=== PATIENT | male | born 1995 | race Caucasian/White ===

== ENCOUNTER 2021-05-24 16:12 | Inpatient (IN) | payer OTHER ==
[~2021-05-24] VITALS: Ht 182.8 cm; Wt 107.7 kg
[2021-05-24 17:06] LABS: BASO # 0.1 10*3/uL (0.0-0.1); BASO % 1.3 % (0.0-1.0); EOS % 0.4 % (1.0-4.0); HEMATOCRIT 46.8 % (42.0-52.0); LYMPH # 2.4 10*3/uL (1.3-4.4); LYMPH % 23.2 % (27.0-41.0); MEAN CELL VOLUME 93.6 fl (80.0-94.0); MEAN CORPUSCULAR HGB CONC 35.3 g/dl (33.0-37.0); MEAN PLATELET VOLUME 9.5 fl (9.6-12.3); MONO # 0.4 10*3/uL (0.1-1.0); MONO % 3.8 % (3.0-9.0); NEUT # 7.2 10*3/uL (2.3-7.9); PLATELET COUNT AUTOMATED 338 10*3/uL (130-400); RED CELL DISTRI WIDTH 11.9 % (0-14.5); WHITE BLOOD COUNT 10.1 10*3/uL (4.8-10.8)
[2021-05-24 17:25] LABS: ALBUMIN 4.5 gm/dl (3.1-4.5); ALKALINE PHOSPHATASE 92 U/L (45-117); BUN 6 mg/dl (7-24); CHLORIDE 101 mmol/L (98-107); CREATININE 0.91 mg/dL (0.70-1.30); POTASSIUM 3.6 mmol/L (3.5-5.1); SGOT/AST 51 IU/L (3-35); SGPT/ALT 55 U/L (12-78); SODIUM 140 mmol/L (136-145); TOTAL PROTEIN 8.9 gm/dL (6.4-8.2)
[2021-05-24 17:50] LABS: URINE AMPHETAMINES < 1000 (1000ng/ml); URINE BARBITURATES < 200 (200ng/ml); URINE BENZODIAZEPINES < 200 (200ng/ml); URINE CANNABINOIDS (THC) > 50 (50ng/ml); URINE COCAINE < 300 (300ng/ml); URINE METHADONE < 300 (300ng/ml); URINE OPIATES < 300 (300ng/ml)
[2021-05-24 17:57] LABS: URINE PHENCYCLIDINE < 25 (25ng/ml)
[2021-05-24 20:00] VITALS: BP 132/66
[2021-05-25] VITALS: BP 105/53
[2021-05-25 08:00] VITALS: BP 106/63
[2021-05-25 12:00] VITALS: BP 105/72
[2021-05-25 16:00] VITALS: BP 127/78
[2021-05-25 19:47] VITALS: BP 138/94
[2021-05-26 02:45] VITALS: BP 96/53
[2021-05-26 08:00] VITALS: BP 100/53
[2021-05-26 12:00] VITALS: BP 101/57
[2021-05-26 16:00] VITALS: BP 142/91
[2021-05-26 20:00] VITALS: BP 119/76
[2021-05-27 08:46] VITALS: BP 102/58
[2021-05-27 12:00] VITALS: BP 134/85
[2021-05-27 17:15] VITALS: BP 105/57
[2021-05-27 20:00] VITALS: BP 105/85
[2021-05-28] VITALS: BP 112/67
[2021-05-28 04:00] VITALS: BP 105/85
[2021-05-28 05:58] LABS: CREATININE 0.92 mg/dL (0.70-1.30)
[2021-05-28 06:09] LABS: BASO # 0.1 10*3/uL (0.0-0.1); BASO % 1.2 % (0.0-1.0); EOS # 0.3 10*3/uL (0.0-0.4); EOS % 3.2 % (1.0-4.0); HEMATOCRIT 46.3 % (42.0-52.0); LYMPH # 2.8 10*3/uL (1.3-4.4); LYMPH % 31.3 % (27.0-41.0); MEAN CELL VOLUME 96.5 fl (80.0-94.0); MEAN CORPUSCULAR HGB 32.9 pg (27.0-31.0); MEAN CORPUSCULAR HGB CONC 34.1 g/dl (33.0-37.0); MEAN PLATELET VOLUME 9.9 fl (9.6-12.3); MONO # 0.4 10*3/uL (0.1-1.0); MONO % 4.7 % (3.0-9.0); NEUT # 5.2 10*3/uL (2.3-7.9); NEUT % 59.3 % (47.0-73.0); PLATELET COUNT AUTOMATED 217 10*3/uL (130-400); RED CELL DISTRI WIDTH 12.6 % (0-14.5); WHITE BLOOD COUNT 8.8 10*3/uL (4.8-10.8)
[2021-05-28 08:00] VITALS: BP 113/73
[2021-05-28 12:00] VITALS: BP 127/85
[2021-05-28] MEDS ORDERED: ATIVAN1 MG PO (12:08)
== END 2021-05-29 02:49 | DRG 775 ==
LOC: ICCU 16:12 → 5E 16:12 → ICCU 05-27 17:30
PROVIDERS: Internal Medicine; ADMIT Internal Medicine; ATTEND Internal Medicine
DX: F10.239 Alcohol dependence with withdrawal, unspecified (principal); E80.6 Other disorders of bilirubin metabolism; E83.41 Hypermagnesemia; F17.210 Nicotine dependence, cigarettes, uncomplicated; R73.9 Hyperglycemia, unspecified; Z68.32 Body mass index [BMI] 32.0-32.9, adult